=== PATIENT | male | born 1975 | race Native Hawaiian/Other Pacific Islander ===

== ENCOUNTER 2018-02-16 12:59 | Inpatient (IN) | payer MEDICARE, MEDICAID ==
[2018-02-16 13:00] VITALS: BMI 29.2
--- NOTE | 2018-02-16 13:41 | ED PDOC ---
Arrival/HPI - General Chief Complaint: Psychiatric Evaluation Time Seen by Provider: 02/16/18 13:27 Historian: Patient - History of Present Illness Narrative History of Present Illness (Text): 02/16/18 13:32 42 year old male, with past medical history of seizure disorder and psoriactic arthritis, presents to the Emergency department complaining of suicidal ideation and thoughts but no plan since yesterday after hearing voices that resembled last moments of his mother's recent suffering/passing. Patient lost his mother on December 02 of this year, and he has expressed depression since then. pt is currently receiving outpt consuling. pt states with hearing voices since yesterday, his sense of suicidal thoughts became more severe and he decided to notify Dr Gil today, who spoke with Dr Callahan and patient was instructed to come to ED for further eval. Additionally, Patient states/informs of intermittent generalized headache for the past few months but denies any trauma. Patient states feeling extremely fatigued. Patient denies any fever, chills, sweats, nausea, vomiting, diarrhea, abdominal pain, urinary output changes, changes in bowel movement, chest pain, shortness of breath, palpitations or any other complaints. Patient denies any homicidal ideation, tactile or visual hallucination and requests psychiatric evaluation. PMD: Dr. Vo PSYCH: Dr Gil Time/Duration: 24 hours Symptom Onset: Gradual Symptom Course: Unchanged Severity Level: Moderate Activities at Onset: Rest Context: Home, Other (Referred by Dr. Gil) Past Medical History - Provider Review Nursing Documentation Reviewed: Yes - Travel History Have you recently traveled outside [place] w/in the past 3 mons?: No - Past History Past History: No Previous - Infectious Disease Hx of Infectious Diseases: None - Cardiac Hx Hypertension: No - Pulmonary Hx Respiratory Disorders: No - Neurological Hx Migraine: Yes Hx Seizures: Yes - HEENT Hx HEENT Disorder: No - Renal Hx Renal Disorder: No - Endocrine/Metabolic Hx Endocrine Disorders: No - Hematological/Oncological Hx Blood Disorders: No - Integumentary Hx Dermatological Disorder: Yes Hx Psoriasis: Yes - Musculoskeletal/Rheumatological Hx Arthritis: Yes (psoriatic) - Gastrointestinal Hx Gastrointestinal Disorders: No - Genitourinary/Gynecological Hx Sexually Transmitted Diseases: No - Psychiatric Hx Bipolar Disorder: Yes Hx Post Traumatic Stress Disorder: Yes Hx Substance Use: No Other/Comment: DID - Past Surgical History Past Surgical History: No Previous - Anesthesia Hx Anesthesia: No Hx Anesthesia Reactions: No Hx Malignant Hyperthermia: No - Suicidal Assessment Feels Threatened In Home Enviroment: No Family/Social History - Physician Review Nursing Documentation Reviewed: Yes Family/Social History: No Known Family HX Smoking Status: Never Smoked Hx Alcohol Use: No Hx Substance Use: No Hx Substance Use Treatment: No Allergies/Home Meds Allergies/Adverse Reactions: Allergies strawberry Allergy (Severe, Verified 02/16/18 13:13) ANAPHYLAXIS metoclopramide HCl [From Reglan] Allergy (Verified 02/16/18 13:13) SWELLING phenytoin [From Dilantin] Allergy (Verified 02/16/18 13:13) RASH lamotrigine [From Lamictal] Adverse Reaction (Severe, Verified 02/16/18 13:13) SWELLING tomato Adverse Reaction (Severe, Verified 02/16/18 13:13) ANAPHYLAXIS buprenorphine HCl [From Suboxone] Adverse Reaction (Mild, Verified 02/16/18 13: 13) RASH divalproex sodium [From Depakote] Adverse Reaction (Mild, Verified 02/16/18 13: 13) RASH naloxone Adverse Reaction (Mild, Verified 02/16/18 13:13) RASH naloxone HCl [From Suboxone] Adverse Reaction (Mild, Verified 02/16/18 13:13) RASH sumatriptan [From Imitrex] Adverse Reaction (Mild, Verified 02/16/18 13:13) RASH sumatriptan succinate [From Imitrex] Adverse Reaction (Mild, Verified 02/16/18 13:13) RASH Home Medications: Home Meds Medication Instructions Recorded Confirmed Topiramate [Topamax] 100 mg PO BID 11/07/16 02/16/18 clonazePAM [Klonopin] 2 mg PO TID 11/07/16 02/16/18 Gabapentin [Neurontin] 300 mg PO HS 11/09/16 02/16/18 DiphenhydrAMINE [Benadryl] 50 mg PO HS 02/16/18 02/16/18 Folic Acid 1 mg PO DAILY 02/16/18 02/16/18 Secukinumab [Cosentyx Pen (2 Pens)] 300 mg INJ DAILY 02/16/18 02/16/18 Review of Systems - Physician Review All systems were reviewed & negative as marked: Yes - Review of Systems Constitutional: absent: Fevers Eyes: Normal ENT: Normal Respiratory: absent: SOB Cardiovascular: absent: Chest Pain, Palpitations Gastrointestinal: absent: Abdominal Pain, Stool Changes, Diarrhea, Nausea, Vomiting Genitourinary Male: Normal. absent: Urinary Output Changes Musculoskeletal: Normal Skin: Normal Neurological: Headache, Other (Auditory hallucination. No visual/tactile hallucination.) Endocrine: Normal Hemo/Lymphatic: Normal Psychiatric: Depression, Suicidal Ideation, Other (No homicidal ideation) Physical Exam Vital Signs Reviewed: Yes Vital Signs Temp Pulse Resp BP Pulse Ox 02/16/18 15:14 74 18 121/70 97 02/16/18 13:39 97.8 F 90 18 141/77 95 Temperature: Afebrile Blood Pressure: Hypertensive (slightly elevated BP) Pulse: Regular Respiratory Rate: Normal Appearance: Positive for: Well-Appearing, Non-Toxic, Other (alert/awake, GCS = 15, oriented x 3, cooperative, NAD, resting in bed, mildly uncomfortable, flat affect noted) Pain Distress: None Mental Status: Positive for: Alert and Oriented X 3 - Systems Exam Head: Present: Atraumatic, Normocephalic Pupils: Present: PERRL, Other (no photophobia, sclera anicteric, no nystagmus, visual field intact b/l) Extroacular Muscles: Present: EOMI Conjunctiva: Present: Normal Ears: Present: Normal Mouth: Present: Moist Mucous Membranes, Normal Teeth, Other (uvula/tongue are midline, no exudate/lesions, no drooling/stridor) Pharnyx: Present: Normal Nose (External): Present: Atraumatic Nose (Internal): Present: Normal Inspection Neck: Present: Normal Range of Motion, Trachea Midline, Other (intact ROM, no midline tenderness, no nuchal rigidity, no step off, no gross deformities). No : Meningeal Signs, MIDLINE TENDERNESS Respiratory/Chest: Present: Clear to Auscultation, Good Air Exchange, Other ( CTA b/l, no w/r/r, no accessory muscle use noted, no tachypenia). No: Respiratory Distress, Accessory Muscle Use Cardiovascular: Present: Regular Rate and Rhythm, Normal S1, S2. No: Murmurs Abdomen: Present: Normal Bowel Sounds, Other (well nourished male, no focal tenderness, no terrazas's sign, no mcburney's point tenderness, no masses/rebound/ guarding/rigidity). No: Tenderness, Distention, Peritoneal Signs Back: Present: Normal Inspection. No: CVA Tenderness, Midline Tenderness, Paraspinal Tenderness Upper Extremity: Present: Normal Inspection, Normal ROM, NORMAL PULSES, Neurovascularly Intact, Capillary Refill < 2s. No: Cyanosis, Edema, Deformity Lower Extremity: Present: Normal Inspection, NORMAL PULSES, Normal ROM, Neurovascularly Intact, Capillary Refill < 2 s. No: Edema Neurological: Present: GCS=15, CN II-XII Intact, Speech Normal Skin: Present: Warm, Dry, Normal Color, Other (left upper arm/elbow chronic skin changes, left lower ext as well (consistent with pt's psoritic disorder/ arthritis); cap refill < 1sec, no ulcerations, no petechiae, no active open sores/bleeding sites noted). No: Rashes Psychiatric: Present: Alert, Oriented x 3, Normal Insight, Normal Concentration , Other (depressed, flat affect) Medical Decision Making ED Course and Treatment: 02/16/18 13:43 Impression: 42 year old male presents to the Emergency department for psychiatric evaluation. I have considered all differential diagnoses regarding patients chief medical complaints/clinical findings which include but are not limited to: Severe depression vs. suicidal ideation vs. questionable schizoaffective disorder. Rule out medical causes. Plan: -- CT of Head -- Labs -- EKG -- Urinalysis -- Chest X-ray -- Reassess and disposition Progress Notes: 02/16/18 15:49 PT IS MEDICALLY cleared FOR PSYCH EVAL/mgt/txt I spoke to crisis counselor transcription coordinator, will see patient Crisis counselor evaluated patient and pt is to be admitted to psych for further stabilization and care/mgt pt agrees pt is made aware of his medical results agrees with admission Re-evaluation Time: 15:11 Reassessment Condition: Unchanged - Lab Interpretations Lab Results: 02/16/18 13:30 02/16/18 13:30 Lab Results 02/16/18 13:30: Urine Opiates Screen Negative, Urine Methadone Screen Negative, Ur Barbiturates Screen Negative, Ur Phencyclidine Scrn Negative, Ur Amphetamines Screen Negative, U Benzodiazepines Scrn Negative, U Oth Cocaine Metabols Negative, U Cannabinoids Screen Negative 02/16/18 13:30: Alcohol, Quantitative < 10 02/16/18 13:30: Salicylates < 1 L, Acetaminophen < 10.0 L 02/16/18 13:30: Sodium 143, Potassium 3.6, Chloride 110 H, Carbon Dioxide 20 L, Anion Gap 17, BUN 19, Creatinine 1.3, Est GFR ( Amer) > 60, Est GFR (Non- Af Amer) > 60, Random Glucose 137 H, Calcium 9.6, Total Bilirubin 0.4, AST 54, ALT 114 H, Alkaline Phosphatase 85, Total Protein 7.7, Albumin 4.4, Globulin 3.3 , Albumin/Globulin Ratio 1.3 02/16/18 13:30: Urine Color Yellow, Urine Appearance Clear, Urine pH 6.0, Ur Specific [place] 1.025, Urine Protein Negative, Urine Glucose (UA) Negative, Urine Ketones Negative, Urine Blood Negative, Urine Nitrate Negative, Urine Bilirubin Negative, Urine Urobilinogen 0.2, Ur Leukocyte Esterase Negative 02/16/18 13:30: WBC 9.2, RBC 5.21, Hgb 15.5, Hct 45.7, MCV 87.7, MCH 29.8, MCHC 33.9, RDW 14.4, Plt Count 183, MPV 11.5 H, Gran % 56.4, Lymph % (Auto) 34.5, [place] % (Auto) 6.2 H, Eos % (Auto) 2.6, Baso % (Auto) 0.3, Gran # 5.18, Lymph # ( Auto) 3.2, [place] # (Auto) 0.6, Eos # (Auto) 0.2, Baso # (Auto) 0.03 I have reviewed the lab results: Yes Interpretation: All labs normal - RAD Interpretation Narrative RAD Interpretations (Text): 02/16/18 14:57 Chest X-ray reviewed by radiologist, shows: LUNGS: No active pulmonary disease. PLEURA: No significant pleural effusion identified, no pneumothorax apparent. CARDIOVASCULAR: No radiographic findings to suggest acute or significant cardiovascular disease. OSSEOUS STRUCTURES: No significant abnormalities. VISUALIZED UPPER ABDOMEN: Normal. OTHER FINDINGS: None. IMPRESSION: No active disease. No significant interval change compared to the prior examination(s). 02/16/18 16:11 CT head - PROCEDURE: CT HEAD WITHOUT CONTRAST. HISTORY: headache, no trauma, medical screening COMPARISON: None available. TECHNIQUE: Axial computed tomography images were obtained through the head/brain without intravenous contrast. Radiation dose: Total exam DLP = 859 mGy-cm. This CT exam was performed using one or more of the following dose reduction techniques: Automated exposure control, adjustment of the mA and/or kV according to patient size, and/or use of iterative reconstruction technique. FINDINGS: HEMORRHAGE: No intracranial hemorrhage. BRAIN: No mass effect or edema. No atrophy or chronic microvascular ischemic changes. VENTRICLES: Unremarkable. No hydrocephalus. CALVARIUM: Unremarkable. PARANASAL SINUSES: Unremarkable as visualized. No significant inflammatory changes. MASTOID AIR CELLS: Unremarkable as visualized. No inflammatory changes. OTHER FINDINGS: None. IMPRESSION: No acute findings Radiology Orders: 02/16/18 13:27 HEAD W/O CONTRAST [CT] Stat 02/16/18 13:28 CHEST PORTABLE [RAD] Stat Tongue Binder: Radiologist - EKG Interpretation EKG Interpretation (Text): 02/16/18 15:11 NSR at 80 bpm, normal axis, no ectopy, qs in leads III, no st-t changes, NORMAL EKG otherwise; unchanged compare with old ekg 12/02 Interpreted by ED Physician: Yes Type: 12 lead EKG Comparison: Similar to previous EKG - Medication Orders Current Medication Orders: Acetaminophen (Tylenol 325mg Tab) 650 mg PO Q6H PRN PRN Reason: Pain, moderate (4-7) Al Hydrox/Mg Hydrox/Simethicone (Maalox Plus 30 Ml) 30 ml PO DAILY PRN PRN Reason: Indigestion / Heartburn Chlorpromazine (Thorazine) 50 mg PO HS BRENT PRN Reason: Protocol Chlorpromazine (Thorazine) 50 mg PO QAM BRENT PRN Reason: Protocol Chlorpromazine (Thorazine) 50 mg PO Q6 PRN; Protocol PRN Reason: Agitation Chlorpromazine (Thorazine) 25 mg IM Q6 PRN; Protocol PRN Reason: Agitation Clonazepam (Klonopin) 2 mg PO TID BRENT PRN Reason: Protocol Last Admin: 02/16/18 17:15 Dose: 2 mg Behavioural Document 02/16/18 17:15 ABO (Rec: 02/16/18 17:15 ABO [id number]) Maintenance Maintenance Dose Yes Magnesium Hydroxide (Milk Of Magnesia) 30 ml PO DAILY PRN PRN Reason: Constipation Zaleplon (Sonata) 5 mg PO HS PRN PRN Reason: Insomnia - Scribe Statement The provider has reviewed the documentation as recorded by the Phyllisibe Ginny Mcneal. All medical record entries made by the Scribe were at my direction and personally dictated by me. I have reviewed the chart and agree that the record accurately reflects my personal performance of the history, physical exam, medical decision making, and the department course for this patient. I have also personally directed, reviewed, and agree with the discharge instructions and disposition. Disposition/Present on Arrival - Present on Arrival Any Indicators Present on Arrival: No History of DVT/PE: No History of Uncontrolled Diabetes: No Urinary Catheter: No History of Decub. Ulcer: No History Surgical Site Infection Following: None - Disposition Have Diagnosis and Disposition been Completed?: Yes Diagnosis: Major depressive disorder, Suicidal thoughts, Medical clearance for psychiatric admission, Headache Disposition: HOSPITALIZED Disposition Time: 15:30 Patient Plan: Admission Condition: STABLE
[2018-02-16 13:53] LABS: BASO # 0.03 K/mm3 (0.0-2.0); BASO % 0.3 % (0.0-3.0); EOS # 0.2 (0.0-0.7); EOS % 2.6 % (1.5-5.0); GRAN # 5.18 (1.4-6.5); GRAN % 56.4 % (50.0-68.0); HEMOGLOBIN 15.5 g/dL (14.0-18.0); LYMPH # 3.2 (1.2-3.4); LYMPH % 34.5 % (22.0-35.0); MEAN CELL VOLUME 87.7 fl (80.0-105.0); MEAN CORPUSCULAR HEMOGLOBIN 29.8 pg (25.0-35.0); MEAN CORPUSCULAR HGB CONC 33.9 g/dl (31.0-37.0); MEAN PLATELET VOLUME 11.5 fl (7.0-11.0); MONO # 0.6 (0.1-0.6); MONO % 6.2 % (1.0-6.0); RBC 5.21 10^6/uL (3.5-6.1); RED CELL DISTRIBUTION WIDTH 14.4 % (11.5-14.5); WHITE BLOOD COUNT 9.2 10^3/ul (4.5-11.0)
--- NOTE | 2018-02-16 14:01 | RAD ---
HISTORY: medical screening COMPARISON: 10/04/2016 FINDINGS: LUNGS: No active pulmonary disease. PLEURA: No significant pleural effusion identified, no pneumothorax apparent. CARDIOVASCULAR: No radiographic findings to suggest acute or significant cardiovascular disease. OSSEOUS STRUCTURES: No significant abnormalities. VISUALIZED UPPER ABDOMEN: Normal. OTHER FINDINGS: None. IMPRESSION: No active disease. No significant interval change compared to the prior examination(s).
[2018-02-16 14:04] LABS: ALB/GLOB RATIO 1.3 (1.1-1.8); ALBUMIN 4.4 g/dL (3.0-4.8); ALT/SGPT 114 U/L (7-56); AST/SGOT 54 U/L (17-59); BLOOD UREA NITROGEN 19 mg/dL (7-21); CALCIUM 9.6 mg/dL (8.4-10.5); GFR AFRICAN-AMERICAN > 60; GFR NON-AFRICAN AMERICAN > 60
[2018-02-16 14:06] LABS: ACETAMINOPHEN < 10.0 ug/ml (10.0-20.0); SALICYLATE < 1 mg/dL (2.0-20.0); URINE BILIRUBIN NEGATIVE (NEGATIVE); URINE BLOOD NEGATIVE (NEGATIVE); URINE GLUCOSE (UA) NEGATIVE (NEGATIVE); URINE LEUKOCYTE ESTERASE NEGATIVE Leu/uL (NEGATIVE); URINE PROTEIN NEGATIVE mg/dL (<30 mg/dL); URINE UROBILINOGEN 0.2 E.U./dL (<1 E.U./dL)
[2018-02-16 14:09] LABS: URINE APPEARANCE CLEAR (CLEAR); URINE COLOR YELLOW (YELLOW)
[2018-02-16 14:11] LABS: BENZODIAZEPINES, UR NEGATIVE (NEGATIVE)
[2018-02-16 14:13] LABS: BARBITURATES, UR NEGATIVE (NEGATIVE); OPIATES, UR NEGATIVE (NEGATIVE); PHENCYCLIDINE, UR NEGATIVE (NEGATIVE)
--- NOTE | 2018-02-16 15:38 | CT ---
PROCEDURE: CT HEAD WITHOUT CONTRAST. HISTORY: headache, no trauma, medical screening COMPARISON: None available. TECHNIQUE: Axial computed tomography images were obtained through the head/brain without intravenous contrast. Radiation dose: Total exam DLP = 859 mGy-cm. This CT exam was performed using one or more of the following dose reduction techniques: Automated exposure control, adjustment of the mA and/or kV according to patient size, and/or use of iterative reconstruction technique. FINDINGS: HEMORRHAGE: No intracranial hemorrhage. BRAIN: No mass effect or edema. No atrophy or chronic microvascular ischemic changes. VENTRICLES: Unremarkable. No hydrocephalus. CALVARIUM: Unremarkable. PARANASAL SINUSES: Unremarkable as visualized. No significant inflammatory changes. MASTOID AIR CELLS: Unremarkable as visualized. No inflammatory changes. OTHER FINDINGS: None. IMPRESSION: No acute findings
[2018-02-16 15:53] VITALS: O2SAT 99
[2018-02-16] MEDS ORDERED: Magnesium Hydroxide Susp 30 ml UD PO PRN (16:21)
--- NOTE | 2018-02-16 18:11 | PCM.BM ---
<Bhupendra Grayson - Last Filed: 02/16/18 18:07> Treatment Plan Problems - Problems identified on initial assessmt ALTERED SLEEP PATTERN Date Initiated: 02/16/18 Time Initiated: 18:07 Assessment reference: LISA PELAYO Status: Active MEDS REGIMENT NONADHERANCE Date Initiated: 02/16/18 Time Initiated: 18:11 Assessment reference: HP, NA THOUGHT PROCESS ALTERATION Date Initiated: 02/16/18 Time Initiated: 18:12 Assessment reference: HP, NA Treatment assets and liabiliti Patient Assests: cooperative, educated, insightful, physically healthy, good support system, negotiates basic needs Patient Liabilities: physical pain, relationship conflicts, other - Milieu Protocol Maintain good personal hygiene: daily Encourage regular showers, daily Remind patient to perform daily oral care, daily Assist patient to perform ADL's Maintain personal safety: daily Educate patient to report safety concerns to staff, daily Monitor environment for contraband/sharps Medication safety: Monitor for expected outcome, potential side effects: daily, Assess barriers to learning: daily, Assess readiness for medication education: daily Discharge/Continuing Care - Education Needs Education Needs: Patient Medication, Patient Diagnosis/Disease Process, Patient Coping Skills, Patient Community resources, Patient Health Practices/Safety, Patient Personal Hygiene/Grooming, Patient Aftercare Safety Plan, Patient Other - Discharge Discharge Criteria: Free of Suicidal thoughts, Free of Homicidal thoughts, Free of paranoid thoughts, Free of agitation, Normal sleep pattern, Ability to care for self <Briana Dodson - Last Filed: 02/17/18 10:52> - Diagnosis (1) Hallucination Status: Acute Interventions: * Group, milieu and supportive tx Thorazine 50 mg AM and HS and PRN for hallucinations 02/17/18 10:53 (2) Bipolar disorder Status: Acute Interventions: Klonopin 2 mg po TID for anxiety and mood control Sonata 5 mg po HS prn: insomnia 02/17/18 10:54 (3) Anxiety Status: Acute Interventions: Klonopin 2 mg po TID for anxiety and mood control 02/17/18 10:55 <Kodak Marshall - Last Filed: 02/19/18 12:31> Treatment assets and liabiliti Patient Assests: cooperative, self-reliant, ADL independent, good support system , negotiates basic needs, cognitively intact, good interpersonal skills - Milieu Protocol Maintain good personal hygiene: daily Encourage regular showers, daily Remind patient to perform daily oral care, daily Assist patient to perform ADL's Conduct patient checks and document Observation sheet: Q15 minutes Maintain personal safety: every shift Educate patient to report safety concerns to staff, every shift Monitor environment for contraband/sharps Medication safety: Monitor for expected outcome, potential side effects: every shift, Assess barriers to learning: every shift, Assess readiness for medication education: every shift Discharge/Continuing Care - Education Needs Education Needs: Patient Medication, Patient Diagnosis/Disease Process, Patient Coping Skills, Patient Aftercare Safety Plan - Discharge Discharge Criteria: Tolerates medication w/o severe side effects, Normal sleep pattern, Ability to care for self, No longer exhibiting s/s of withdrawal, Reduction of target symptoms Discharge to:: Home <Loan Ybarra - Last Filed: 02/19/18 15:33> Family Contact Family involvement: Family/SO is involved Family contact: Patient agrees to contact - Outside Agency Dr. Rome Care involvment: Following patient during stay, Information-sharing Agency contact name: Dr. Rome, psychiatrist Agency 1 Care involvment: Information-sharing Agency contact name: [facility], therapy <EvertonHien - Last Filed: 02/19/18 15:48> Family Contact - Outside Agency Dr. Rome Care involvment: Following patient during stay, Information-sharing Agency contact name: Dr. Rome, psychiatrist Agency 1 Care involvment: Information-sharing Agency contact name: [facility], therapy [facility] Care involvment: Information-sharing Agency contact name: [facility]
[2018-02-17 08:54] LABS: HDL CHOLESTEROL 48 mg/dL (29-60)
[2018-02-17 09:05] LABS: LDL CHOLESTEROL 109 mg/dL (0-129)
--- NOTE | 2018-02-17 09:36 | CARD ---
APPROVED REPORT EKG Measurement Heart [id number] <Conclusion> Normal sinus rhythm Q in lll WNL No change
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
[2018-02-18] MEDS: Alum-Mag Hydrox-Simethicone Susp (30 mL) PO PRN (22:14)
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
[2018-02-19] MEDS: Alum-Mag Hydrox-Simethicone Susp (30 mL) PO PRN (19:57)
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
[2018-02-21] MEDS: Alum-Mag Hydrox-Simethicone Susp (30 mL) PO PRN ×2 (02:55→10:04)
[2018-02-21 07:10] VITALS: BP 99/68; PULSE 84; RESP 20; TEMP 98.2
== END 2018-02-21 15:45 | disposition home or self-care (01) | DRG 885 ==
LOC: ED 12:59 → ERH 15:03 → PSYC 15:57
PROVIDERS: ADMIT Psychiatry & Neurology Psychiatry; ATTEND Psychiatry & Neurology Psychiatry
DX: F31.64 Bipolar disorder, current episode mixed, severe, with psychotic features (principal); F43.10 Post-traumatic stress disorder, unspecified; F41.1 Generalized anxiety disorder; F40.01 Agoraphobia with panic disorder; L40.50 Arthropathic psoriasis, unspecified; F11.21 Opioid dependence, in remission; F15.21 Other stimulant dependence, in remission

== ENCOUNTER 2018-09-21 20:30 | Inpatient (IN) | payer MEDICARE, MEDICAID ==
[2018-09-21 20:30] VITALS: BMI 29.2
[2018-09-21 20:44] VITALS: O2SAT 98
--- NOTE | 2018-09-21 21:03 | ED PDOC ---
Arrival/HPI - General Chief Complaint: Psychiatric Evaluation Time Seen by Provider: 09/21/18 20:32 Historian: Patient - History of Present Illness Narrative History of Present Illness (Text): 09/21/18 20:58 42 year old male, whose past medical history includes depression, anxiety, suicidal ideation, and seizure disorder, who presents to the Emergency department complaining of depression and suicidal ideation today. Patient states his mother in November and her wedding Anniversary was September 09. He feels angry about his mother and feels like he may hurt himself or others. Patient notes he is in therapy but his symptoms worsened today. Patient denies any fevers, chills, chest pain, shortness of breath, abdominal pain, nausea, vomiting, diarrhea, back pain, neck pain, urinary symptoms, headache, dizziness, or any other complaint. Patient is a Jehovah Witness. Dr. Nuñez - Neurology Dr. Little - PMD Time/Duration: Other (today) Symptom Onset: Gradual Symptom Course: Unchanged Activities at Onset: Light Context: Home Past Medical History - Provider Review Nursing Documentation Reviewed: Yes - Travel History Have you recently traveled outside [place] w/in the past 3 mons?: No - Past History Past History: No Previous - Infectious Disease Hx of Infectious Diseases: None - Cardiac Hx Hypertension: No - Pulmonary Hx Respiratory Disorders: No - Neurological Hx Migraine: Yes Hx Seizures: Yes - HEENT Hx HEENT Disorder: No - Renal Hx Renal Disorder: No - Endocrine/Metabolic Hx Endocrine Disorders: No - Hematological/Oncological Hx Blood Disorders: No - Integumentary Hx Dermatological Disorder: Yes Hx Psoriasis: Yes - Musculoskeletal/Rheumatological Hx Arthritis: Yes (psoriatic) - Gastrointestinal Hx Gastrointestinal Disorders: No - Genitourinary/Gynecological Hx Sexually Transmitted Diseases: No - Psychiatric Hx Bipolar Disorder: Yes Hx Substance Use: Yes (13 years sober) - Past Surgical History Past Surgical History: No Previous - Anesthesia Hx Anesthesia: No Hx Anesthesia Reactions: No Hx Malignant Hyperthermia: No - Suicidal Assessment Feels Threatened In Home Enviroment: No Family/Social History - Physician Review Nursing Documentation Reviewed: Yes Family/Social History: Unknown Family HX Smoking Status: Never Smoked Hx Alcohol Use: No Hx Substance Use: Yes (13 years sober) Hx Substance Use Treatment: No Allergies/Home Meds Allergies/Adverse Reactions: Allergies strawberry Allergy (Severe, Verified 09/24/18 00:51) ANAPHYLAXIS metoclopramide HCl [From Reglan] Allergy (Verified 09/24/18 00:51) SWELLING phenytoin [From Dilantin] Allergy (Verified 09/24/18 00:51) RASH lamotrigine [From Lamictal] Adverse Reaction (Severe, Verified 09/24/18 00:51) SWELLING tomato Adverse Reaction (Severe, Verified 09/24/18 00:51) ANAPHYLAXIS buprenorphine HCl [From Suboxone] Adverse Reaction (Mild, Verified 09/24/18 00:51) RASH divalproex sodium [From Depakote] Adverse Reaction (Mild, Verified 09/24/18 00:51) RASH naloxone Adverse Reaction (Mild, Verified 09/24/18 00:51) RASH naloxone HCl [From Suboxone] Adverse Reaction (Mild, Verified 09/24/18 00:51) RASH sumatriptan [From Imitrex] Adverse Reaction (Mild, Verified 09/24/18 00:51) RASH sumatriptan succinate [From Imitrex] Adverse Reaction (Mild, Verified 09/24/18 00:51) RASH Home Medications: Home Meds Medication Instructions Recorded Confirmed RX: Topiramate [Topamax] 100 mg PO BID 11/07/16 09/22/18 Secukinumab [Cosentyx Pen (2 Pens)] 300 mg INJ DAILY 02/16/18 09/22/18 Review of Systems - Physician Review All systems were reviewed & negative as marked: Yes - Review of Systems Constitutional: Normal Eyes: Normal ENT: Normal Respiratory: Normal. absent: SOB, Cough Cardiovascular: Normal. absent: Chest Pain Gastrointestinal: Normal. absent: Abdominal Pain, Diarrhea, Nausea, Vomiting Genitourinary Male: Normal. absent: Frequency, Hematuria Musculoskeletal: Normal. absent: Back Pain, Neck Pain Skin: Normal. absent: Rash Neurological: Normal. absent: Headache, Dizziness Endocrine: Normal Hemo/Lymphatic: Normal Psychiatric: Depression, Suicidal Ideation Physical Exam Vital Signs Reviewed: Yes Vital Signs Temp Pulse Resp BP Pulse Ox 09/21/18 20:43 97.8 F 100 H 18 134/83 98 Temperature: Afebrile Blood Pressure: Normal Pulse: Regular Respiratory Rate: Normal Appearance: Positive for: Well-Appearing, Non-Toxic, Comfortable Pain Distress: None Mental Status: Positive for: Alert and Oriented X 3 - Systems Exam Head: Present: Atraumatic, Normocephalic Pupils: Present: PERRL Extroacular Muscles: Present: EOMI Conjunctiva: Present: Normal Mouth: Present: Moist Mucous Membranes Neck: Present: Normal Range of Motion Respiratory/Chest: Present: Clear to Auscultation, Good Air Exchange. No: Respiratory Distress, Accessory Muscle Use Cardiovascular: Present: Regular Rate and Rhythm, Normal S1, S2. No: Murmurs Abdomen: No: Tenderness, Distention, Peritoneal Signs Back: Present: Normal Inspection Upper Extremity: Present: Normal Inspection. No: Cyanosis, Edema Lower Extremity: Present: Normal Inspection. No: Edema Neurological: Present: GCS=15, CN II-XII Intact, Speech Normal Skin: Present: Warm, Dry, Normal Color. No: Rashes Psychiatric: Present: Alert, Oriented x 3, Normal Insight, Normal Concentration Medical Decision Making ED Course and Treatment: 09/21/18 21:03 Impression: 42 year old male presents to the emergency department complaining of depression and SI today. Plan: --Labs --PES evaluation -- Reassess and disposition Progress Notes: 09/21/18 22:08 Labs reviewed with no outstanding values. Patient is medically cleared. PES ocean transportation intermediary called. 09/21/18 23:17 PES screener evaluated patient with patient accepting patient for voluntary psychiatric inpatient admission. - RAD Interpretation Radiology Orders: 09/21/18 20:52 CHEST PORTABLE [RAD] Stat - Scribe Statement The provider has reviewed the documentation as recorded by the Scribe Nathalie Hong All medical record entries made by the Scribe were at my direction and personally dictated by me. I have reviewed the chart and agree that the record accurately reflects my personal performance of the history, physical exam, medical decision making, and the department course for this patient. I have also personally directed, reviewed, and agree with the discharge instructions and disposition. Disposition/Present on Arrival - Present on Arrival Any Indicators Present on Arrival: No History of DVT/PE: No History of Uncontrolled Diabetes: No Urinary Catheter: No History of Decub. Ulcer: No History Surgical Site Infection Following: None - Disposition Have Diagnosis and Disposition been Completed?: Yes Diagnosis: Suicidal ideation Disposition: HOSPITALIZED Disposition Time: 23:15 Patient Plan: Admission Condition: GUARDED
[2018-09-21 21:13] LABS: BASO # 0.02 K/mm3 (0.0-2.0); BASO % 0.2 % (0.0-3.0); EOS # 0.2 (0.0-0.7); GRAN # 5.12 (1.4-6.5); GRAN % 59.1 % (50.0-68.0); HEMOGLOBIN 16.2 g/dL (14.0-18.0); LYMPH # 2.8 (1.2-3.4); LYMPH % 32.4 % (22.0-35.0); MEAN CELL VOLUME 89.1 fl (80.0-105.0); MEAN CORPUSCULAR HEMOGLOBIN 30.9 pg (25.0-35.0); MEAN CORPUSCULAR HGB CONC 34.6 g/dl (31.0-37.0); MEAN PLATELET VOLUME 11.2 fl (7.0-11.0); MONO # 0.6 (0.1-0.6); MONO % 6.3 % (1.0-6.0); RBC 5.25 10^6/uL (3.5-6.1); RED CELL DISTRIBUTION WIDTH 13.6 % (11.5-14.5); WHITE BLOOD COUNT 8.7 10^3/uL (4.5-11.0)
[2018-09-21 21:21] LABS: ALB/GLOB RATIO 1.1 (1.1-1.8); ALBUMIN 4.4 g/dL (3.0-4.8); ALT/SGPT 49 U/L (7-56); AST/SGOT 27 U/L (17-59); BLOOD UREA NITROGEN 17 mg/dL (7-21); CALCIUM 9.2 mg/dL (8.4-10.5); GFR NON-AFRICAN AMERICAN > 60
[2018-09-21 21:22] LABS: ACETAMINOPHEN < 10.0 ug/ml (10.0-20.0); SALICYLATE < 1 mg/dL (2.0-20.0)
[2018-09-21] MEDS ORDERED: Potassium Chloride 20 mEq/15 ml LIQ UD PO STA (21:50)
[2018-09-22 00:30] LABS: URINE BILIRUBIN NEGATIVE (NEGATIVE); URINE BLOOD NEGATIVE (NEGATIVE); URINE GLUCOSE (UA) NEGATIVE (NEGATIVE); URINE LEUKOCYTE ESTERASE NEGATIVE Leu/uL (NEGATIVE); URINE PROTEIN NEGATIVE mg/dL (<30 mg/dL); URINE UROBILINOGEN 0.2 E.U./dL (<1 E.U./dL)
[2018-09-22 00:43] LABS: BENZODIAZEPINES, UR NEGATIVE (NEGATIVE); URINE APPEARANCE CLEAR (CLEAR); URINE COLOR YELLOW (YELLOW)
[2018-09-22 00:50] LABS: BARBITURATES, UR NEGATIVE (NEGATIVE); OPIATES, UR NEGATIVE (NEGATIVE); PHENCYCLIDINE, UR NEGATIVE (NEGATIVE)
--- NOTE | 2018-09-22 03:24 | PCM.BM ---
<Kenna Bal - Last Filed: 09/22/18 03:22> Treatment Plan Problems - Problems identified on initial assessmt Altered thought Pattern Date Initiated: 09/22/18 Time Initiated: 03:15 Assessment reference: NA Status: Active Anxiety Date Initiated: 09/22/18 Time Initiated: 03:15 Assessment reference: NA Status: Active Treatment assets and liabiliti Patient Assests: cooperative, self-reliant, ADL independent, good support system, negotiates basic needs, cognitively intact, good interpersonal skills <Briana Dodson - Last Filed: 09/22/18 10:28> - Diagnosis (1) Major depressive disorder Status: Acute Interventions: 09/22/18 10:28 * Group, milieu and supportive tx * Thorazine 50 mg AM and HS for anger, impulse control and hx of hallucinations, cogentin 0.5 mg po AMHS for EPS prophylaxis * Klonopin 2 mg po AMHS for anxiety and mood control * Sonata 5 mg po HS prn: insomnia * Neurontin 300 mg po AMHS for mood and anxiety control * Topamax 100 mg po bid, titrate to prior effective dose of 200 mg po bid (2) PTSD (post-traumatic stress disorder) Status: Acute Interventions: 09/22/18 10:28 * Group, milieu and supportive tx * Thorazine 50 mg AM and HS for anger, impulse control and hx of hallucinations, cogentin 0.5 mg po AMHS for EPS prophylaxis * Klonopin 2 mg po AMHS for anxiety and mood control * Sonata 5 mg po HS prn: insomnia * Neurontin 300 mg po AMHS for mood and anxiety control * Topamax 100 mg po bid, titrate to prior effective dose of 200 mg po bid <Loan Ybarra - Last Filed: 09/24/18 13:48> Family Contact Family involvement: Family/SO is involved Family contact: Patient agrees to contact - Outside Agency Dr. Rome Care involvment: Information-sharing Agency contact name: psychiatrist, Dr. Rome Agency 1 Care involvment: Information-sharing Agency contact name: [facility] <Ori Toscanon - Last Filed: 09/25/18 12:12>
--- NOTE | 2018-09-22 09:05 | RAD ---
HISTORY: psych pre op COMPARISON: Chest x-ray performed 02/16/18 TECHNIQUE: Chest, one view. FINDINGS: Examination limited by habitus. LUNGS: Linear atelectasis, left lower lobe. Please note that chest x-ray has limited sensitivity for the detection of pulmonary masses. PLEURA: No significant pleural effusion identified. No definite pneumothorax . CARDIOVASCULAR: Heart size appears within normal limits. No significant atherosclerotic calcification present. OSSEOUS STRUCTURES: Degenerative changes. VISUALIZED UPPER ABDOMEN: Unremarkable. OTHER FINDINGS: None. IMPRESSION: Linear atelectasis, left lower lobe.
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
--- NOTE | 2018-09-22 13:26 | CARD ---
APPROVED REPORT Date of service: 09/21/2018 EKG Measurement Heart [id number] <Conclusion> Normal sinus rhythm Normal ECG
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
[2018-09-26 07:29] VITALS: RESP 20
--- NOTE | 2018-09-26 07:42 | CON ---
DATE: 09/25/2018 CHIEF COMPLAINT: Headaches. HISTORY OF PRESENT ILLNESS: This is a 42-year-old man who is well known to me from my office with past medical history of chronic migraines with fevers, depression, anxiety, suicidal ideation, who came in for worsening depression, schizophrenia, ____. In November, he ____, depression. He had some worsening diffuse frontal pressure headaches with occasional aura, but otherwise doing well. He is on gabapentin ____ p.o. t.i.d., which will help with his headaches. In addition, he is on Topamax 100 mg in a.m. and nightly, which also will help with his headaches, depression and anxiety related to his headaches ____. PAST MEDICAL HISTORY: As above. FAMILY HISTORY: Noncontributory. SOCIAL HISTORY: No illicit drug use, smoking, or EtOH abuse. ALLERGIES: ____. REVIEW OF SYSTEMS: Twelve-point review of systems as per HPI. PHYSICAL EXAMINATION GENERAL: The patient is sitting up in bed, in no acute distress. VITAL SIGNS: Temperature 98.1, pulse rate 60, blood pressure 110/69, respiratory rate 15. HEENT: He is atraumatic, normocephalic. PERRLA. Extraocular muscles intact. NECK: Supple. No JVD. No adenopathy. LUNGS: Clear to auscultation. No adventitious sounds. HEART: S1, S2. Normal rate and rhythm. No murmurs, rubs, or gallops. ABDOMEN: Soft, nontender, nondistended. Bowel sounds present. EXTREMITIES: No clubbing, no cyanosis. Peripheral pulses 2+ felt bilaterally. NEUROLOGIC: The patient is alert and oriented to person, place, month, and year. Speech without any errors. Affect is flat. No hallucinations, no delusions, no paranoia, no . Cranial nerves II through XII intact. Motor exam: Moves all extremities equally. Normal tone, normal bulk, and muscle. Sensory: Decreased light touch and pinprick up to the calves bilaterally. Decreased vibration of the toes. DTRs are 2+ throughout on both knees and ankles. Coordination: [id number]-yu-hsvo intact. No dysmetria noted. Gait is normal. LABORATORY DATA: Review of labs done today. ASSESSMENT AND PLAN: Headaches, no more of a worsening migraine aggravated by tension and superimposed underlying acute depression . At this time, I recommend continuing his current doses of gabapentin and Topamax and follow up with me as an outpatient for ____ subcutaneous injection monthly. Preston Nuñez MD
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
[2018-09-27 07:13] VITALS: BP 121/83; PULSE 98; TEMP 98.4
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
== END 2018-09-27 11:53 | disposition home or self-care (01) | DRG 885 ==
LOC: ED 20:30 → ERH 23:16 → PSYC 09-22 01:40
PROVIDERS: ADMIT Psychiatry & Neurology Psychiatry; ATTEND Psychiatry & Neurology Psychiatry
DX: F31.64 Bipolar disorder, current episode mixed, severe, with psychotic features (principal); F43.10 Post-traumatic stress disorder, unspecified; F41.1 Generalized anxiety disorder; F40.01 Agoraphobia with panic disorder; F15.21 Other stimulant dependence, in remission; F11.21 Opioid dependence, in remission; Z62.810 Personal history of physical and sexual abuse in childhood; Z91.14 Patient's other noncompliance with medication regimen